=== PATIENT | female | born 1990 | race Caucasian/White ===

== ENCOUNTER → 2025-05-19 | Outpatient (CLI) | payer BC ==
--- NOTE | 2025-05-19 14:27 | USB ---
Reason for Exam: Clinical finding. Technique: Method: Targeted. Findings: The area of palpable concern of the left breast, the axilla of the left breast and the retroareolar of both breasts were scanned. Targeted bilateral ultrasound. An area of clinical concern left breast near the nipple there is a vague irregular hypervascular hypoechoic 1.4 x 0.7 x 1.3 cm area favoring infection near the dermal border suspicious for focal soft tissue infection or cellulitis. No well-formed drainable fluid collection or abscess currently. There is prominent but benign-appearing lymph node in the left axilla identified by the technologist. Comparison views of the right nipple are unremarkable. Overall Assessment: Probably benign, BI-RAD 3 Management: Diagnostic Breast Ultrasound of the left breast in 2 months. Consider follow-up ultrasound in one to 2 months time to reassess. Advise more urgent ultrasound reevaluation if clinical symptoms worsen. A clinical breast exam by your physician is recommended on an annual basis and results should be correlated with mammographic findings. This exam should not preclude additional follow-up of suspicious palpable abnormalities. Results were given to the patient verbally at the time of exam. [facility], , 05/19/2025 2:24 PM. Electronically signed and approved by: Breezy Esteban M.D.
== END | disposition home or self-care (01) ==
LOC: RADUSWWP 13:52
PROVIDERS: ATTEND Family Medicine
DX: N61.1 Abscess of the breast and nipple (principal)